=== PATIENT | male | born 1980 | race Caucasian/White ===

== ENCOUNTER 2023-08-25 21:25 | Inpatient (IN) | payer OTHER ==
[2023-08-25 22:15] VITALS: BMI 15.6
[2023-08-25] MEDS ORDERED: BISMUTH SUBSALICYLATE 524 MG/30 ML PO PRN (22:54)
[2023-08-25] MEDS ORDERED: DICYCLOMINE HCL 10 MG CAPSULE PO PRN (22:54)
[2023-08-25] MEDS ORDERED: guaiFENesin 600 MG TABLET.ER (FP) PO PRN (22:54)
[2023-08-25] MEDS ORDERED: LOPERAMIDE HCL 2 MG CAPSULE PO PRN (22:54)
[2023-08-25] MEDS ORDERED: POLYETHYLENE GLYCOL (HEALTHYLAX) 3350 17 GM PACKET PO PRN (22:54)
[2023-08-25] MEDS ORDERED: BENZONATATE 200 MG CAPSULE PO PRN (22:54)
[2023-08-25] MEDS ORDERED: MAG HYDROX/AL HYDROX/SIMETH 30 ML UNIT-DOSE CUP PO PRN (22:54)
[2023-08-25] MEDS ORDERED: IBUPROFEN 400 MG TABLET (FP) PO PRN (22:54)
[2023-08-25] MEDS ORDERED: ACETAMINOPHEN 325 MG TABLET (FP) PO PRN (22:54)
[2023-08-25] MEDS ORDERED: NICOTINE POLACRILEX 2 MG GUM BUC PRN (22:54)
[2023-08-25] MEDS ORDERED: MAGNESIUM HYDROX 2400MG/30ML ORAL SUSPENSION 30 ML CUP PO PRN (22:54)
[2023-08-25] MEDS ORDERED: NALOXONE HCL (KLOXXADO) 8 MG SPRAY NS PRN (22:54)
[2023-08-25] MEDS ORDERED: IBUPROFEN 600 MG TABLET (FP) PO PRN (22:54)
[2023-08-25] MEDS ORDERED: methaDONE HCL 10 MG TABLET (FOR DETOX USE ONLY) PO ONE (22:54)
[2023-08-25] MEDS ORDERED: NALOXONE HCL 0.4 MG/ML VIAL IM PRN (22:54)
[2023-08-25] MEDS ORDERED: BENZOCAINE/MENTHOL (CHLORASEPTIC ) LOZENGE MM PRN (22:54)
[2023-08-25] MEDS ORDERED: ONDANSETRON *ODT* 4 MG TABLET SL ONE (22:59)
[2023-08-25] MEDS ORDERED: ONDANSETRON *ODT* 4 MG TABLET ONE (23:12)
[2023-08-25] MEDS ORDERED: methaDONE HCL 10 MG TABLET (FOR DETOX USE ONLY) ONE (23:12)
[2023-08-25] MEDS: METHOCARBAMOL 500 MG TABLET PO PRN (23:35)
[2023-08-25] MEDS: cloNIDine HCL 0.1 MG TABLET PO PRN (23:35)
[2023-08-26 09:57] LABS: POTASSIUM 4.3 mmol/L (3.5-5.1)
[2023-08-26] MEDS: cloNIDine HCL 0.1 MG TABLET PO PRN ×2 (09:57→21:35)
[2023-08-26] MEDS: METHOCARBAMOL 500 MG TABLET PO PRN ×2 (09:57→21:35)
[2023-08-26] MEDS: PRENATAL VITAMINS W/ FOLIC ACID TABLET (FP) PO SCH (09:57)
[2023-08-26] MEDS: NICOTINE 14 MG/24 HOURS TOPICAL PATCH TD SCH (10:02)
[2023-08-26 10:05] LABS: CALCIUM 8.4 mg/dL (8.5-10.1); HEMATOCRIT 36.3 % (35.4-49); HEMOGLOBIN 11.1 GM/dL (11.7-16.9); MCH 22.9 pg (25.7-33.7); MCHC 30.6 g/dl (32.0-35.9); MEAN CELL VOLUME 74.8 fl (80-96); MEAN PLT VOLUME 8.5 fl (7.5-11.1); PLATELET COUNT 283 10^3/uL (134-434); RBC 4.86 M/mm3 (4.00-5.60); RDW 14.6 % (11.9-15.9); WHITE BLOOD COUNT 10.4 K/mm3 (4.0-10.0)
[2023-08-26 10:06] LABS: ALBUMIN 2.8 g/dl (3.4-5.0)
[2023-08-26 10:09] LABS: CREATININE 0.8 mg/dL (0.55-1.3)
[2023-08-26 10:11] LABS: BILIRUBIN,TOTAL 0.5 mg/dL (0.2-1); TOT PROT 7.2 g/dl (6.4-8.2)
[2023-08-26] MEDS: THIAMINE HCL 100 MG TABLET (FP) PO SCH (21:35)
[2023-08-26] MEDS: MELATONIN 5 MG TABLETS PO SCH (21:35)
[2023-08-27] MEDS: METHOCARBAMOL 500 MG TABLET PO PRN ×2 (09:53→22:11)
[2023-08-27] MEDS: PRENATAL VITAMINS W/ FOLIC ACID TABLET (FP) PO SCH (09:53)
[2023-08-27] MEDS: NICOTINE 14 MG/24 HOURS TOPICAL PATCH TD SCH (09:53)
[2023-08-27] MEDS: cloNIDine HCL 0.1 MG TABLET PO PRN ×2 (09:53→22:11)
[2023-08-27] MEDS ORDERED: methaDONE HCL 10 MG TABLET (FOR DETOX USE ONLY) PO ONE (10:00)
[2023-08-27] MEDS: CEPHALEXIN MONOHYDRATE 500 MG CAPSULE (UD) PO SCH ×2 (13:27→22:11)
[2023-08-27] MEDS: THIAMINE HCL 100 MG TABLET (FP) PO SCH (22:11)
[2023-08-27] MEDS: MELATONIN 5 MG TABLETS PO SCH (22:11)
[2023-08-28] MEDS: CEPHALEXIN MONOHYDRATE 500 MG CAPSULE (UD) PO SCH ×3 (05:19→22:12)
[2023-08-28 08:53] VITALS: RESP 16
[2023-08-28] MEDS: PRENATAL VITAMINS W/ FOLIC ACID TABLET (FP) PO SCH (09:32)
[2023-08-28] MEDS: NICOTINE 14 MG/24 HOURS TOPICAL PATCH TD SCH (10:14)
[2023-08-28] MEDS: METHOCARBAMOL 500 MG TABLET PO PRN (22:12)
[2023-08-28] MEDS: MELATONIN 5 MG TABLETS PO SCH (22:12)
[2023-08-28] MEDS: THIAMINE HCL 100 MG TABLET (FP) PO SCH (22:12)
[2023-08-29] MEDS: CEPHALEXIN MONOHYDRATE 500 MG CAPSULE (UD) PO SCH (05:16)
[2023-08-29 09:11] VITALS: BP 122/86; PULSE 89; TEMP 98.8
[2023-08-29] MEDS: PRENATAL VITAMINS W/ FOLIC ACID TABLET (FP) PO SCH (09:55)
[2023-08-29] MEDS: NICOTINE 14 MG/24 HOURS TOPICAL PATCH TD SCH (09:57)
[2023-08-29] MEDS ORDERED: methaDONE HCL 10 MG TABLET (FOR DETOX USE ONLY) PO ONE (10:00)
== END 2023-08-29 10:16 | disposition home or self-care (01) | DRG 773 ==
LOC: YASAS 21:25 → Y3N 23:07
PROVIDERS: ADMIT Allergy & Immunology; ATTEND Surgery
PROC: HZ2ZZZZ Detoxification Services for Substance Abuse Treatment (ICD-10-PCS; principal; 2023-08-25)
DX: F11.23 Opioid dependence with withdrawal (principal); F14.20 Cocaine dependence, uncomplicated; F17.210 Nicotine dependence, cigarettes, uncomplicated; L03.114 Cellulitis of left upper limb; M25.512 Pain in left shoulder; G89.29 Other chronic pain
CPT/HCPCS: 36415; 80053; 85027; 86780; 87635; 93005; 93010; Q0162